=== PATIENT | male | born 1955 | race Asian ===

== ENCOUNTER → 2017-05-22 | Outpatient (CLI) | payer MEDICARE ==
[~2017-05-22] MED LIST: CIPR-249 PO; DORZ2OPD OS; DULO1CAP2 PO; GABA-282 PO; PERCOCET PO; PRED20TAB PO; tylenol OR
== END ==
LOC: M SMT 10:39
PROVIDERS: ATTEND Urology
DX: Z12.5 Encounter for screening for malignant neoplasm of prostate (principal); Z85.46 Personal history of malignant neoplasm of prostate
CPT/HCPCS: 36415; 81001; 84153; G0463

== ENCOUNTER 2017-10-24 08:43 | Emergency (ER) | payer MEDICARE ==
[~2017-10-24] VITALS: Ht 190.5 cm; Wt 77.3 kg
[2017-10-24] MEDS ORDERED: TYLE325T5 PO (08:53)
[2017-10-24] MEDS ORDERED: PERCOCET 5MG/325MG TAB PO ONE ×2 (09:45→13:45)
[2017-10-24] MEDS ORDERED: predniSONE 20 MG TAB PO ONE (09:45)
[2017-10-24 10:30] LABS: MEAN CORPUSCULAR HEMOGLOBIN 30.7 pg (27.0-33.0); MEAN CORPUSCULAR HGB CONC 30.9 g/dl (32.0-36.5); MEAN CORPUSCULAR VOLUME 99.4 fl (80.0-96.0); RED CELL DISTRIBUTION WIDTH 24.7 % (11.5-14.5); WHITE BLOOD COUNT 3.4 10^3/uL (4.0-10.0)
[2017-10-24 10:32] LABS: ADD MANUAL DIFFER YES; BLASTS POS FLAG; DIFF SLIDE NUMBER 145; PLATELET COUNT, AUTOMATED 99 10^3/uL (150-450); POS COUNT POS FLAG; POSITIVE MORPH POS FLAG
[2017-10-24 10:33] LABS: IMMATURE PLATELET FRACTION % 7.4 % (0.0-10.9)
[2017-10-24 10:53] LABS: ALBUMIN 4.1 GM/DL (3.2-5.2); ALBUMIN/GLOBULIN RATIO 1.24 (1.00-1.93); ALKALINE PHOSPHATASE 58 U/L (45-117); ALT/SGPT 15 U/L (12-78); ANION GAP 8 MEQ/L (8-16); AST/SGOT 13 U/L (7-37); BILIRUBIN,TOTAL 1.1 MG/DL (0.2-1.0); BLOOD UREA NITROGEN 18 MG/DL (7-18); CALCIUM LEVEL 8.7 MG/DL (8.8-10.2); CARBON DIOXIDE LEVEL 25 MEQ/L (21-32); CHLORIDE LEVEL 106 MEQ/L (98-107); CREATININE FOR GFR 0.98 MG/DL (0.70-1.30); GLOMERULAR FILTRATION RATE > 60.0 (>49); GLUCOSE, FASTING 98 MG/DL (80-110); POTASSIUM SERUM 3.9 MEQ/L (3.5-5.1); SODIUM LEVEL 139 MEQ/L (136-145); TOTAL PROTEIN 7.4 GM/DL (6.4-8.2)
[2017-10-24 10:57] LABS: ERYTHROCYTE SEDIMENTATION RATE 105 mm/hr (0-20)
[2017-10-24 11:05] LABS: BLAST CELLS 15 % (0-0)
[2017-10-24 11:07] LABS: ANISOCYTOSIS 2+; HYPOCHROMASIA 2+
[2017-10-24 11:30] LABS: INR 1.12
[2017-10-24 11:32] LABS: FOLATE 11.8 NG/ML (>5.4)
--- NOTE | 2017-10-24 11:46 | REP ---
CHEST X-RAY: Two views. HISTORY: Cough. COMPARISON STUDY: February 06, 2015. FINDINGS: The lungs are well inflated and clear. Pleural angles are sharp. Heart is not enlarged. Pulmonary vasculature is not increased. There is a granulomatous calcification again noted in the left lung probably in the upper lobe unchanged. No significant bony abnormality is seen. The patient is status post ventral discectomy and fusion plating in the cervical spine as before. IMPRESSION: No active cardiopulmonary disease. Status post cervical spine fusion plating. Signed by Campbell Choi MD 10/24/2017 02:44 P
[2017-10-24] MEDS ORDERED: MORPHINE 4 MG/ML 1ML SYRINGE IV ONE (13:30)
[2017-10-24 14:02] VITALS: BP 137/83
--- NOTE | 2017-10-25 10:44 | ECGEPIP ---
Stationary ECG Study [facility] - ED Test Date: 2017-10-24 Pat Name: LANCE COOPER Department: Room: - Gender: M Rate Examiner: [facility] : 1955 Requested By: ASIA REYES PA-C Order Number: [id number] Reading MD: Diandra Berg Measurements Intervals [place] Rate: 81 P: 68 HI: 158 QRS: 37 QRSD: 93 T: 44 QT: 348 QTc: 405 Interpretive Statements SINUS RHYTHM Electronically Signed On 10-25-2017 10:43:59 EST by Diandra Berg
== END 2017-10-24 14:03 | disposition short-term general hospital (02) ==
LOC: M ED 08:43
DX: D61.818 Other pancytopenia (principal); M35.3 Polymyalgia rheumatica; M54.9 Dorsalgia, unspecified; F41.9 Anxiety disorder, unspecified; F32.9 Major depressive disorder, single episode, unspecified; R45.4 Irritability and anger; G43.909 Migraine, unspecified, not intractable, without status migrainosus; D50.9 Iron deficiency anemia, unspecified; H54.8 Legal blindness, as defined in USA; F17.200 Nicotine dependence, unspecified, uncomplicated; Z98.1 Arthrodesis status; Z79.899 Other long term (current) drug therapy; Z88.5 Allergy status to narcotic agent; Z88.8 Allergy status to other drugs, medicaments and biological substances
CPT/HCPCS: 36430; 71020; 80053; 82550; 82607; 82746; 83605; 84443; 85025; 85049; 85055; 85610; 85652; 86140; 86850; 86900; 86901; 86920; 93005; 96374; 99285; P9016